=== PATIENT | male | born 2000 | race Caucasian/White ===

== ENCOUNTER 2021-10-02 17:08 | Emergency (ER) | payer OTHER ==
[~2021-10-02] VITALS: Ht 182.9 cm; Wt 90.9 kg
[2021-10-02 17:15] VITALS: TEMP 98.5
[2021-10-02] MEDS ORDERED: CEPHALEXIN500 M1 PO (17:35)
[2021-10-02 17:53] VITALS: BP 131/64; PULSE 90
== END 2021-10-02 17:52 | disposition home or self-care (01) ==
LOC: COL.ER 17:08
DX: S91.332A Puncture wound without foreign body, left foot, initial encounter (principal); F17.290 Nicotine dependence, other tobacco product, uncomplicated; W26.8XXA Contact with other sharp object(s), not elsewhere classified, initial encounter; Y92.828 Other wilderness area as the place of occurrence of the external cause